=== PATIENT | male | born 1950 | race Caucasian/White ===

== ENCOUNTER 2019-11-14 11:51 | Emergency (ER) | payer SELFPAY ==
[~2019-11-14] VITALS: Ht 175.3 cm; Wt 64.0 kg
[2019-11-14] MEDS ORDERED: PERMETHRIN 5% CREAM 60GM TOP ONE (12:15)
[2019-11-14] MEDS ORDERED: DIPHENHYDRAMINE 25MG CAPSULE PO ONE (12:45)
[2019-11-14 14:37] VITALS: BP 108/72
== END 2019-11-14 14:40 | disposition home or self-care (01) ==
LOC: ER 11:51
DX: B86 Scabies (principal); L25.9 Unspecified contact dermatitis, unspecified cause
CPT/HCPCS: 99283; Q0163